=== PATIENT | male | born 1980 | race Caucasian/White ===

== ENCOUNTER → 2018-07-22 13:11 | Outpatient (CLI) | payer MEDICAID, SELFPAY ==
--- NOTE | 2018-07-22 13:16 | MR_ITS ---
MR knee RT wo con HISTORY: Right knee pain, history of torn tendon and fracture patella with surgery 2 months ago. Recent fall one month ago with knee pain since ITS.REASON: RIGHT KNEE PAIN ORDERING PHYSICIAN: Mc Yepez PATIENT AGE: 38 years Comparison: 02/01/2018, 07/04/2018 TECHNIQUE: Standard multiplanar multiecho sequences are performed without contrast. FINDINGS: Injury cruciate ligament is not identified system with a tear of the ACL. Posterior cruciate ligament is unremarkable. The collateral ligaments have an unremarkable appearance. No obvious meniscal tear. There is severe patella zelalem. The patella has an irregular appearance consistent with an old fracture. The popliteal tendon is torn in the infrapatellar region with diffuse edema along the inferior aspect of the patella. Patella is subluxed superiorly. What appears to represent fibers of the patellar tendon ends approximately 2.6 cm proximal to the patella with patellar alter. T2 hyperintensities are present within the patella and proximal tibia and may be due to postsurgical changes. There is a moderate sized knee joint effusion. The retracted patellar tendon has a somewhat heterogeneous appearance. Mild osteoarthritic changes are present involving the lateral compartment. IMPRESSION: 1. Old fracture of the patella with tear of the patellar tendon and superior retraction of the patella with moderate amount of edema in the infrapatellar region extending into the pretibial area. 2. Anterior cruciate ligament tear 3. Knee joint effusion
== END ==
PROVIDERS: PCP Physician Assistant; Visit Provider Physician Assistant
DX: M25.561 Pain in right knee (principal)
CPT/HCPCS: 73721

== ENCOUNTER 2023-06-04 13:11 | Emergency (ER) | payer MEDICAID, SELFPAY ==
[2023-06-04 13:17] VITALS: BP 135/71; PULSE 88; O2SAT 97
[2023-06-04 13:18] VITALS: BP 135/71; PULSE 88; RESP 20; TEMP 36.7; O2SAT 98; BMI 31.6
--- NOTE | 2023-06-04 13:25 | [facility].EDGENADL ---
Discharge Plan Disposition Patient Disposition: Home, Self-Care Condition: Good Prescriptions Prescriptions: New pantoprazole 40 mg tablet,delayed release (DR/EC) 40 mg PO DAILY Qty: 30 1RF ondansetron HCl 4 mg tablet 4 mg PO Q8H PRN (Reason: nausea and vomiting) 4 Days Qty: 12 0RF Referrals Follow up/Referrals: Brandyn Morgan MD [Primary Care Provider] - See instructions Activity Restrictions/Add. Instructions Additional Instructions/Restrictions: You were evaluated in the emergency department today. Please fern picker your prescriptions at the pharmacy and take them as prescribed. Follow-up with your primary care provider over the next 3 days. Return to the emergency department for any new or worsening symptoms. Clinical Impressions Clinical Impression: Gastritis Qualifiers: Gastritis type: unspecified gastritis Chronicity: acute Gastritis bleeding: without bleeding Qualified Code(s): K29.00 - Acute gastritis without bleeding Stand Alone Forms Stand Alone Forms: Work/School Release Instructions Patient Instructions: DI for Gastritis, DI for Acute Abdominal Pain Discharge ED Provider: Jennifer Alatorre General Adult HPI General Chief complaint: Abdominal Pain Stated complaint: abd pain, vomiting, dairrhea, fever Time Seen by Provider: 06/04/23 13:13 Mode of Arrival: Ambulatory Source of Information: Patient Limitations: No Limitations Description of Symptoms (Recalled from ER Triage Doc. by RN): pt to ed c/o left sided abd pain that has been present for months however the pain became more severe today. pt states he has hadintermittent n/v/d. pt states the pain sharp in nature and worse with movement. History of Present Illness HPI narrative: This patient is a 43-year-old male presenting to the emergency department for evaluation with concern for left upper quadrant abdominal pain, nausea, vomiting, and diarrhea that started over the weekend but became more severe today. He states that he has had issues like this for months and has been evaluated in the hospital and diagnosed with gastroenteritis. He denies any history of upper or lower endoscopy. He denies any hematemesis, hematochezia, melena, or other concerns. He notes that he is having subjective fevers and chills but is not taking his temperature. Nothing seems to make his symptoms better, but eating makes it worse. Related Data Previous Rx's Medication Instructions Recorded ondansetron HCl 4 mg tablet 4 mg PO Q8H PRN nausea and 06/04/23 vomiting 4 days #12 tabs pantoprazole 40 mg tablet,delayed 40 mg PO DAILY #30 tabs 06/04/23 release Allergies Allergy/AdvReac Type Severity Reaction Status Date / Time No Known Allergies Allergy Verified 08/05/18 12:48 [facility] Disclaimer: The information contained in this section may have been updated after the patient was seen, as this information can be updated by other users. Social History Smoking Status: Never smoker alcohol intake: never current occupational status: employed Travel in the last 8 weeks: None ROS Obtained: Yes All systems reviewed & no additional complaints except as documented 14 point review of systems obtained and negative except as mentioned in HPI. Physical Exam General General appearance: alert and in no apparent distress Head Head exam: atraumatic and normocephalic Eye Eye exam: Present normal appearance, PERRL and EOMI ENT ENT exam: Present normal exam, normal oropharynx and mucous membranes moist Neck Neck exam: Present normal inspection, full ROM and trachea midline Chest Chest inspection: Present normal inspection and symmetric chest wall rise Respiratory Respiratory exam: Present normal lung sounds bilaterally; Absent respiratory distress or wheezes Cardiovascular Cardiovascular exam: Present regular rate and normal rhythm Abdominal Exam Abdominal exam: Present soft and tenderness (Left
[2023-06-04 13:30] VITALS: BP 121/90; PULSE 86; O2SAT 100
[2023-06-04 14:01] LABS: Alanine Aminotransferase 33 U/L (12-78); Albumin Level 4.2 g/dl (3.5-5.0); Albumin/Globulin Ratio 1.3 (1.1-1.8); Alkaline Phosphatase 120 U/L (38-126); Anion Gap 11.6 mEq/L (5-15); Aspartate Amino Transferase 42 U/L (17-59); Blood Urea Nitrogen 7 mg/dl (9-20); Carbon Dioxide 28 mmol/L (22.0-30.0); Chloride 101 mmol/L (98-107); Creatinine Clearance Estimated 205 mL/min (50-200); Estimated Glomerular Filt Rate 122 ml/min (>60); GFR (African American) 148 ML/MIN (>60); Globulin 3.3 g/dL (1.3-3.2); Glucose 103 mg/dl (74-100); Lipase 22 U/L (23-300); Potassium 4.6 mmoL/L (3.5-5.1); Sodium 136 mmol/L (136-145); Total Protein,Serum 7.5 g/dl (6.3-8.2)
[2023-06-04 14:14] LABS: Basophils % 0.1 % (0.1-2.0); Eosinophils # 0.1 K/mm3 (0.0-0.4); Eosinophils % 1.2 % (0.1-12.0); Hematocrit 45.5 % (42.0-52.0); Hemoglobin 14.8 g/dL (14.1-18.0); Lymphocytes # 0.9 K/mm3 (0.7-4.5); Lymphocytes % 13.2 % (10-50); Mean Corpuscular HGB Conc 32.5 g/dL (31.8-35.4); Mean Corpuscular Hemoglobin 27.4 pg (27.0-31.2); Mean Corpuscular Volume 84.3 fl (80-94); Mean Platelet Volume 7.2 fl (7.4-10.4); Monocytes # 0.4 K/mm3 (0.1-1.0); Monocytes % 5.8 % (1.7-9.3); Neutrophils # 5.2 K/mm3 (1.8-7.8); Neutrophils % 79.8 % (37.0-80.0); Platelet Count 307 K/mm3 (142-424); Red Cell Distribution Width 17.1 % (11.5-17.5); White Blood Count 6.5 K/mm3 (4.8-10.8)
[2023-06-04 15:36] VITALS: BP 128/93; PULSE 89; RESP 16; TEMP 36.7; O2SAT 99
== END 2023-06-04 15:36 | disposition home or self-care (01) ==
PROVIDERS: Emergency Provider Emergency Medicine; PCP Internal Medicine Adolescent Medicine
DX: K29.00 Acute gastritis without bleeding (principal)
CPT/HCPCS: 80053; 83690; 85025; 96361; 96374; 96375; 99284; J2405